=== PATIENT | male | born 1965 | race Caucasian/White ===

== ENCOUNTER 2022-02-04 18:54 | Emergency (ER) | payer BC ==
[2022-02-04] MEDS ORDERED: Ondansetron 4 MG in Sodium Chloride 0.9% 100 ML IV ONE (19:26)
[2022-02-04] MEDS ORDERED: fentaNYL 50 MCG/ML SDV IVPUSH ONE (19:27)
[2022-02-04] MEDS ORDERED: Ondansetron 4 MG/2 ML SDV IVPUSH ONE (19:35)
[2022-02-04 19:46] LABS: ANION GAP 12.1 mmol/L (5-15)
[2022-02-04] MEDS ORDERED: Sodium Chloride 0.9% 1,000 ML IV ONE (19:56)
[2022-02-04] MEDS ORDERED: Ciprofloxacin in D5W 200 MG in Premix Bag 1 BAG IV ONE ×2 (19:57)
[2022-02-04] MEDS ORDERED: Sodium Chloride 0.9% 10 ML Syringe FLUSH SCH (21:00)
[2022-02-04] MEDS ORDERED: Take Home: Acetaminophen/HYDROcodone 325-5 MG, 5 Tab Pack PO ONE (21:08)
== END 2022-02-04 21:50 | disposition home or self-care (01) ==
LOC: VM.ED 18:54
DX: N13.2 Hydronephrosis with renal and ureteral calculous obstruction (principal); N39.0 Urinary tract infection, site not specified
CPT/HCPCS: 36415; 74176; 80048; 81001; 85025; 87086; 96365; 96375; 99284; 99284-25; A9270-GY; J0744; J2405; J3010; J7030

== ENCOUNTER 2022-02-15 05:11 | Emergency (ER) | payer BC ==
[2022-02-15] MEDS ORDERED: Sodium Chloride 0.9% 10 ML Syringe FLUSH PRN (05:29)
[2022-02-15] MEDS: Sodium Chloride 0.9% 1,000 ML IV ONE (05:41)
[2022-02-15] MEDS: Promethazine 12.5 MG in Sodium Chloride 0.9% 100 ML IV ONE (05:42)
[2022-02-15] MEDS: Morphine 10 MG/ML SDV IVPUSH ONE (05:42)
[2022-02-15 06:03] LABS: ANION GAP 16.6 mmol/L (5-15)
== END 2022-02-15 07:00 | disposition home or self-care (01) ==
LOC: VM.ED 05:11
DX: N13.2 Hydronephrosis with renal and ureteral calculous obstruction (principal)
CPT/HCPCS: 74176; 80053; 81001; 85025; 96361; 96365; 96375; 99284; 99284-25; J2270; J2550; J7030